=== PATIENT | male | born 1940 | race Caucasian/White ===

== ENCOUNTER 2020-07-20 10:57 | Outpatient (RCR) | payer MEDICARE, SELFPAY ==
[2020-07-20 11:04] VITALS: BMI 32.3
[2020-07-20 11:09] VITALS: BMI 32.3
== END 2020-10-04 14:26 | disposition home or self-care (01) ==
LOC: ANHDMC 10:57
PROVIDERS: PCP Internal Medicine; Visit Provider Internal Medicine Endocrinology, Diabetes & Metabolism
DX: E11.65 Type 2 diabetes mellitus with hyperglycemia (principal); Z71.3 Dietary counseling and surveillance
CPT/HCPCS: 97802